=== PATIENT | female | born 1960 | race African-American/Black ===

== ENCOUNTER 2022-10-22 13:24 | Inpatient (IN) | payer OTHER, MEDICAID ==
[~2022-10-22] VITALS: Ht 157.5 cm; Wt 136.1 kg
[2022-10-22 13:41] VITALS: BP_SYST 147; PULSE 90; RESP 16; TEMP 97.3; O2SAT 98
--- NOTE | 2022-10-22 13:45 | NUR ---
RECEIVED PT FROM ARJUN BLAKE. PT BIBS FOR C/O RECTAL PAIN. PT STATED SHE WAS AT ANOTHER HOSPITAL AND HAD A PARITIAL HEMMORHOIDECTOMY. PT STATES PAIN IS 7/10. VSS. SIDERAILS UP X2.
--- NOTE | 2022-10-22 13:46 | NUR ---
DR. HERNANDEZ AT BEDSIDE TO ASSESS PT.
--- NOTE | 2022-10-22 14:02 | NUR ---
Admit bed requested Patient will be admitted to care of . Admitted to med surg unit. Diagnosis Intractible external hemmorhoid Inpatient (Yes or No) yes Observation (Yes or No) no Orientation concerns or request close to nursing station (Yes or No) no Covid Status na On vent or bipap no Isolation requirements no Needs a sitter no From Home (Yes or if No enter name of facility) home Requires Dialysis (Yes or No) no Med Rec Completed (Yes of No) pending.
[2022-10-22] MEDS ORDERED: NACL 0.9% 1,000 ML IV ONE (14:15)
[2022-10-22] MEDS ORDERED: HYDR25TA4 PO (14:19)
[2022-10-22] MEDS ORDERED: IBUP-1970 PO (14:19)
[2022-10-22] MEDS ORDERED: AMLO5TAB4 PO (14:19)
[2022-10-22] MEDS ORDERED: METO-442 PO (14:19)
[2022-10-22] MEDS ORDERED: LOSA100T4 PO (14:19)
--- NOTE | 2022-10-22 14:19 | NUR ---
Medication reconciliation completed with information provided by FAMILY. Any prior medication reconciliation on file was reviewed and corrected.
[2022-10-22 14:39] LABS: BASOPHILS # (AUTO) 0.1 K/uL (0.0-0.2); BASOPHILS % (AUTO) 1.4 % (0.0-2.0); EOSINOPHILS # (AUTO) 0.5 K/uL (0.0-0.4); EOSINOPHILS % (AUTO) 5.3 % (0.0-4.0); HEMATOCRIT 39.5 % (36-48); HEMOGLOBIN 13.2 g/dL (12.0-16.0); LYMPHOCYTES # (AUTO) 2.8 K/uL (1.0-5.5); LYMPHOCYTES % (AUTO) 32.1 % (20.5-51.5); MEAN CORPUSCULAR HEMOGLOBIN 28 pg (27-31); MEAN CORPUSCULAR HGB CONC 33 % (32-36); MEAN CORPUSCULAR VOLUME 85 fL (79.0-98.0); MONOCYTES # (AUTO) 0.7 K/uL (0.0-1.0); MONOCYTES % (AUTO) 7.8 % (1.7-9.3); NEUTROPHILS # (AUTO) 4.7 K/uL (1.8-7.7); NEUTROPHILS % (AUTO) 53.4 % (40.0-70.0); PLATELET COUNT (AUTO) 464 K/uL (130-430); RED BLOOD CELL COUNT(AUTO) 4.66 MIL/uL (4.2-6.2); RED CELL DISTRIBUTION WIDTH 15.2 % (9.0-15.0); WHITE BLOOD COUNT (AUTO) 8.7 K/uL (4.8-10.8)
[2022-10-22] MEDS ORDERED: MORPHINE 2 MG/ML INJ. SYRINGE IVP PRN ×2 (14:45)
[2022-10-22] MEDS ORDERED: ACETAMINOPHEN 325 MG TABLET PO PRN ×2 (14:45→15:15)
[2022-10-22] MEDS ORDERED: MUPIROCIN 2% TOPICAL OINTMENT 22 GM NS PRN (14:45)
[2022-10-22] MEDS ORDERED: ONDANSETRON HCL 4 MG/2 ML VIAL IVP PRN (14:45)
[2022-10-22] MEDS ORDERED: POTASSIUM CHLORIDE 20 MEQ TAB.PRT.SR PO PRN (14:45)
[2022-10-22] MEDS ORDERED: LORazepam 2 MG/ML VIAL IVP PRN (14:45)
[2022-10-22] MEDS ORDERED: ZOLPIDEM TARTRATE 5 MG TABLET PO PRN (14:45)
[2022-10-22] MEDS ORDERED: MAGNESIUM SULFATE 50 ML IV PRN (14:45)
[2022-10-22] MEDS ORDERED: NALOXONE HCL 0.4 MG/ML AMP (NARCAN) IVP PRN ×2 (14:45)
[2022-10-22] MEDS ORDERED: DOCUSATE SODIUM 100 MG CAPSULE PO PRN (14:45)
--- NOTE | 2022-10-22 14:46 | NUR ---
NS IV INITATED AT 100MG/HOUR.
[2022-10-22 14:52] LABS: CALCIUM 8.7 mg/dL (8.4-11.0); CREATININE 0.86 mg/dL (0.55-1.30)
[2022-10-22 14:57] LABS: ALBUMIN 3.1 g/dL (3.4-4.8); INR 1.1 (0.8-1.2); PROTHROMBIN TIME 10.9 SECS (9.5-12.5); TOTAL BILIRUBIN 0.6 mg/dL (0.0-1.0)
[2022-10-22] MEDS: NACL 0.9% 1,000 ML IV SCH (15:38)
--- NOTE | 2022-10-22 15:57 | NUR ---
Patient will be admitted to care of DR. CEJA/ARJUN BATES. Admitted to MEDICAL SURGICAL unit. Will go to room 125A. Belongings list completed. Complete and up to date summary report printed. SBAR report to be given at bedside with opportunity for questions.
--- NOTE | 2022-10-22 16:07 | NUR ---
CONSULTATION PAGED/CALLED Reason for Consultation: [] INTRACTABLE EXTERNAL HEMORRHOID Person Who was Notified: [] DICK Consulting Physician: [] DR Isis BILLS Lip And Gate Builder Specialty: [] GEN SURGEON Ordering Physician: [] DR CEJA
[2022-10-22 16:13] VITALS: BP_SYST 137; PULSE 59; RESP 18; TEMP 97.2; O2SAT 99
[2022-10-22 16:16] VITALS: BP_SYST 137; PULSE 60; RESP 18; TEMP 97.2
--- NOTE | 2022-10-22 19:15 | NUR ---
OPENING NOTE REPORT RECEIVED FROM DAYSHIFT NURSE. PATIENT RECEIVED LYING IN BED, AWAKE, NO S/S OF ACUTE DISTRESS. BREATHING EVEN AND UNLABORED. HOB RAISED. IVF INFUSING WELL. IV SITE PATENT, NO SIGNS OF INFILTRATION OR INFECTION NOTED. CALL LIGHT WITH PATIENT, EDUCATED ON PROPER USE, PATIENT VERBALIZED UNDERSTANDING AND DEMONSTRATED PROPER USE. BED IS LOCKED AND AT LOWEST POSITION. WILL CONTINUE TO MONITOR.
[2022-10-22 20:00] VITALS: BP_SYST 124; PULSE 62; RESP 18; TEMP 97.2; O2SAT 99
[2022-10-22] MEDS: METOPROLOL TARTRATE 50 MG TABLET PO SCH (20:49)
--- NOTE | 2022-10-22 23:00 | NUR ---
ROUNDS PATIENT IS ASLEEP. NO SIGNS OF DISCOMFORT NOTED. CHEST RISE AND FALL EVEN BILATERALLY. CALL LIGHT WITH PATIENT. WILL MONITOR.
[2022-10-23 00:27] VITALS: BP_SYST 134; PULSE 70; RESP 18; TEMP 96.4; O2SAT 94
--- NOTE | 2022-10-23 03:00 | NUR ---
ROUNDS PATIENT IN BED, RESTING. NO CHANGE IN CONDITION. ALL NEEDS MET. WILL MONITOR.
[2022-10-23] MEDS: NACL 0.9% 1,000 ML IV SCH ×3 (04:49→20:25)
[2022-10-23 04:58] LABS: BASOPHILS # (AUTO) 0.1 K/uL (0.0-0.2); BASOPHILS % (AUTO) 0.7 % (0.0-2.0); EOSINOPHILS # (AUTO) 0.4 K/uL (0.0-0.4); EOSINOPHILS % (AUTO) 5.5 % (0.0-4.0); HEMATOCRIT 37.5 % (36-48); HEMOGLOBIN 12.2 g/dL (12.0-16.0); LYMPHOCYTES # (AUTO) 2.5 K/uL (1.0-5.5); MEAN CORPUSCULAR HEMOGLOBIN 28 pg (27-31); MEAN CORPUSCULAR HGB CONC 33 % (32-36); MEAN CORPUSCULAR VOLUME 86 fL (79.0-98.0); MONOCYTES # (AUTO) 0.7 K/uL (0.0-1.0); MONOCYTES % (AUTO) 8.9 % (1.7-9.3); NEUTROPHILS # (AUTO) 4.3 K/uL (1.8-7.7); NEUTROPHILS % (AUTO) 53.9 % (40.0-70.0); PLATELET COUNT (AUTO) 425 K/uL (130-430); RED BLOOD CELL COUNT(AUTO) 4.35 MIL/uL (4.2-6.2); RED CELL DISTRIBUTION WIDTH 15.2 % (9.0-15.0); WHITE BLOOD COUNT (AUTO) 8.1 K/uL (4.8-10.8)
[2022-10-23 05:13] LABS: CALCIUM 8.4 mg/dL (8.4-11.0); CREATININE 0.79 mg/dL (0.55-1.30)
--- NOTE | 2022-10-23 06:25 | NUR ---
CLOSING NOTE PATIENT IN BED, RESTING AT THIS TIME. NO S/S OF ACUTE DISTRESS. BREATHING EVEN AND UNLABORED. IVF INFUSING WELL. IV SITE PATENT, NO SIGNS OF INFILTRATION OR INFECTION NOTED. ALL NEEDS MET. FALL, SAFETY PRECAUTIONS MAINTAINED THROUGHOUT SHIFT. WILL CONTINUE TO MONITOR UNTIL PATIENT CARE IS ENDORSED TO ONCOMING DAYSHIFT NURSE.
[2022-10-23 08:00] VITALS: BP_SYST 125; PULSE 67; RESP 20; TEMP 98.3; O2SAT 97
[2022-10-23] MEDS ORDERED: NON-FORMULARY MEDICATION (Losartan Potassium (Cozaar) 100 MG) PO SCH (09:00)
[2022-10-23] MEDS: HYDROCHLOROTHIAZIDE 25 MG TABLET (HCTZ) PO SCH (09:00)
[2022-10-23] MEDS: LOSARTAN POTASSIUM 50 MG TABLET (COZAAR) PO SCH (09:00)
[2022-10-23] MEDS: DOCUSATE SODIUM 250 MG CAPSULE PO SCH ×2 (09:00→20:32)
[2022-10-23] MEDS: METOPROLOL TARTRATE 50 MG TABLET PO SCH ×2 (09:00→20:31)
[2022-10-23 10:42] LABS: BILIRUBIN,URINE 1+ (NEGATIVE); BLOOD, URINE NEGATIVE (NEGATIVE); CLARITY/URINE CLEAR (CLEAR); COLOR,URINE YELLOW (YELLOW); GLUCOSE,URINE NEGATIVE (NEGATIVE); KETONES,URINE 2+ (NEGATIVE); LEUKOCYTE ESTERASE ,URINE NEGATIVE (NEGATIVE); NITRITE, URINE NEGATIVE (NEGATIVE); PROTEIN URINE NEGATIVE (NEGATIVE); UROBILINOGEN,URINE 0.2 (0.2-1.0)
[2022-10-23 10:53] LABS: RBC,URINE 0-3 /HPF (0-3); WBC,URINE 0-3 /HPF (0-3)
[2022-10-23 10:54] LABS: BACTERIA,URINE MODERATE /HPF (None Seen)
--- NOTE | 2022-10-23 15:07 | NUR ---
Dietitian Recommendations * Consider advance to Clear Liquid diet after Sx if/when medically appropriate -- ONS Ensure Clear TID comes standard w/ current diet -- ONS yields additional 720 kcal/day, 24 gm protein/day) LP, MS, RD Please refer to Nutrition Assessment for details. Addendum: 10/23/22 at [address] Amended: Links added.
[2022-10-23] MEDS ORDERED: LIDOCAINE JELLY 5 ML TUBE MM PRN (17:15)
--- NOTE | 2022-10-23 19:15 | NUR ---
OPENING NOTE REPORT RECEIVED FROM [facility] NURSE. PATIENT RECEIVED LYING IN BED. AWAKE. PATIENT STILL UPSET AT HOW THE DAY HAS GONE, SURGERY DID NOT HAPPEN, SHE HASN'T EATEN IN 2 DAYS, ANXIOUS TO FIND OUT WHEN THE SURGERY WILL HAPPEN. OTHERWISE NO S/S OF ACUTE DISTRESS. BREATHING EVEN AND UNLABORED. NO IV SITE AT THIS TIME. PATIENT STILL REFUSING TO HAVE ONE INSERTED. PATIENT STATED "JUST FIND OUT IF I CAN EAT TONIGHT, I HAVEN'T EATEN IN 2 DAYS". CALL LIGHT WITH PATIENT, BED IS LOCKED AND AT LOWEST POSITION. WILL CONTINUE TO MONITOR.
[2022-10-23 20:00] VITALS: BP_SYST 146; PULSE 102; PULSE 110; RESP 18; TEMP 97.3; O2SAT 92; O2SAT 96
[2022-10-23] MEDS: IBUPROFEN 600 MG TABLET PO PRN (20:31)
--- NOTE | 2022-10-23 21:25 | NUR ---
PATIENT UPSET ALL DAY EXPECTING TO GO TO SURGERY. DELAY IN SURGICAL PROCEDURE DUE TO CARDIAC DELORIS AND NEUROLOGICAL DELORIS. PATIENT SO DISAPPOINTED TO POINT OF ANGRY REFUSING CARE WOULD NOT ALLOW vvs TO BE TAKEN NURSING INTERVENTIONS. WHEN AT GREAT LENGTH CALLING SURGERY PATIENT'S DR'S TO GET PATIENT TO UNDERSTAND THE IMPORTANCE OF CONSULT DUE TO PAST HISTORY. UNABLE TO PLEASE PATIENT IN ANY WAY.
--- NOTE | 2022-10-23 21:25 | NUR ---
CONSULTATION PAGED/CALLED Reason for Consultation: cardia clearance for sx Person Who was Notified: dr nishant nazario via text Consulting Physician: micha Therapeutic Recreation Director Specialty: Ordering Physician: imke
--- NOTE | 2022-10-23 21:25 | NUR ---
CONSULTATION PAGED/CALLED Reason for Consultation: myasthenia gravis Person Who was Notified: dr garner via text Consulting Physician: dr garner Head Inspector Specialty: Ordering Physician: mike
--- NOTE | 2022-10-23 23:00 | NUR ---
ROUNDS PATIENT IN BED, NO SIGNS OF DISCOMFORT. CHEST RISE AND FALL EVEN BILATERALLY. ALL NEEDS MET. CALL LIGHT WITH PATIENT. WILL MONITOR.
[2022-10-23 23:41] VITALS: BP_SYST 121; PULSE 77; RESP 18; TEMP 97; O2SAT 95
[2022-10-24 00:10] VITALS: BP_SYST 121; PULSE 77; RESP 16; TEMP 97; O2SAT 95
--- NOTE | 2022-10-24 03:00 | NUR ---
ROUNDS NO CHANGE IN CONDITION. ALL NEEDS MET. WILL MONITOR.
[2022-10-24] MEDS: NACL 0.9% 1,000 ML IV SCH (05:30)
[2022-10-24 05:33] LABS: BASOPHILS # (AUTO) 0.2 K/uL (0.0-0.2); BASOPHILS % (AUTO) 2.4 % (0.0-2.0); EOSINOPHILS # (AUTO) 0.5 K/uL (0.0-0.4); EOSINOPHILS % (AUTO) 5.2 % (0.0-4.0); HEMATOCRIT 36.7 % (36-48); HEMOGLOBIN 11.8 g/dL (12.0-16.0); LYMPHOCYTES % (AUTO) 33.6 % (20.5-51.5); MEAN CORPUSCULAR HEMOGLOBIN 28 pg (27-31); MEAN CORPUSCULAR HGB CONC 32 % (32-36); MEAN CORPUSCULAR VOLUME 86 fL (79.0-98.0); MONOCYTES # (AUTO) 0.8 K/uL (0.0-1.0); MONOCYTES % (AUTO) 8.4 % (1.7-9.3); NEUTROPHILS # (AUTO) 4.5 K/uL (1.8-7.7); NEUTROPHILS % (AUTO) 50.4 % (40.0-70.0); PLATELET COUNT (AUTO) 478 K/uL (130-430); RED BLOOD CELL COUNT(AUTO) 4.26 MIL/uL (4.2-6.2); RED CELL DISTRIBUTION WIDTH 15.2 % (9.0-15.0)
[2022-10-24 05:50] LABS: CALCIUM 8.4 mg/dL (8.4-11.0); CREATININE 0.81 mg/dL (0.55-1.30)
--- NOTE | 2022-10-24 06:23 | NUR ---
NEW IV/CLOSING NOTE PATIENT ALLOWED RN TO DO AN IV, 2O GAUGE LEFT HAND INSERTED, PATIENT TOLERATED WELL. NO S/S OF ACUTE DISTRESS AT THIS TIME. BREATHING EVEN AND UNLABORED. ALL NEEDS MET THROUGHOUT SHIFT. FALL, SAFETY PRECAUTIONS MAINTAINED THROUGHOUT SHIFT. WILL CONTINUE TO MONITOR UNTIL PATIENT CARE IS ENDORSED TO ONCOMING DAYSHIFT NURSE.
[2022-10-24 07:00] VITALS: BP_SYST 134; PULSE 71; RESP 18; TEMP 96.7; O2SAT 94
[2022-10-24] MEDS: DOCUSATE SODIUM 250 MG CAPSULE PO SCH ×2 (08:57→21:23)
[2022-10-24] MEDS: HYDROCHLOROTHIAZIDE 25 MG TABLET (HCTZ) PO SCH (08:58)
[2022-10-24] MEDS: LOSARTAN POTASSIUM 50 MG TABLET (COZAAR) PO SCH (09:00)
[2022-10-24] MEDS: METOPROLOL TARTRATE 50 MG TABLET PO SCH (09:05)
[2022-10-24] MEDS ORDERED: MIDAZOLAM HCL/PF 2 MG/2 ML SYRINGE ONE (10:00)
[2022-10-24] MEDS ORDERED: BUPIVACAINE /PF 0.25% 30 ML VIAL INJ ONE (10:00)
[2022-10-24] MEDS ORDERED: CIPROFLOXACIN LACTATE/D5W 400 MG/200 ML PIGGYBACK IV ONE (10:00)
[2022-10-24] MEDS ORDERED: BACITRACIN 1 GM OINT TP ONE (10:00)
[2022-10-24] MEDS ORDERED: NS IRRIG SOLN 1000 ML IR ONE (10:00)
[2022-10-24] MEDS ORDERED: LR 1,000 ML IV.SOLN IV ONE (10:00)
--- NOTE | 2022-10-24 10:11 | NUR ---
PATIENT READY FOR SURGERY JUST TAKEN TO OR. VSS AFEBRILE NO FAMILY HERE AT THIS TIME.
[2022-10-24] MEDS ORDERED: BUPIVACAINE LIPOSOME/PF 266 MG/20 ML VIAL INFIL ONE (10:17)
[2022-10-24] MEDS ORDERED: fentaNYL CITRATE/PF 100 MCG/2 ML AMP IVP PRN ×2 (10:45)
[2022-10-24] MEDS ORDERED: METOCLOPRAMIDE HCL 10 MG/2 ML VIAL IVP PRN (10:45)
[2022-10-24] MEDS ORDERED: ONDANSETRON HCL 4 MG/2 ML VIAL IVP PRN (10:45)
[2022-10-24 12:39] VITALS: BP_SYST 129; PULSE 62; RESP 18; TEMP 96.3; O2SAT 98
--- NOTE | 2022-10-24 16:25 | NUR ---
Assumed care, pt in bed on her phone. No acute distress. Pain is control. Enc to call for help as needed. Pt verbalize understanding.
[2022-10-24 16:30] VITALS: BP_SYST 135; PULSE 72; RESP 17; TEMP 97.2; O2SAT 97
--- NOTE | 2022-10-24 16:36 | NUR ---
Notes- patient was seen by Dr. torres this morning before surgery. informed patient that he was cleared to go home by surgeon. Patient prefer to stay 1 more night.
--- NOTE | 2022-10-24 18:28 | NUR ---
closing notes Assisted to the bathroom and voided. Pain is control. Dinner provided. will endorse
[2022-10-24 20:00] VITALS: BP_SYST 156; PULSE 89; RESP 20; TEMP 98.5; O2SAT 95
--- NOTE | 2022-10-24 20:00 | NUR ---
OPENING NOTE Pt awake lying in bed. Pt is visibly upset, stating she is in pain and has not received pain medication yet. Informed pt prescribed pain medications and asked which one she prefers, pt ignored RN and did not answer any questions she was asked. ARJUN Ferrera spoke with the patient to ask which pain mediation she wants. Pt verbalized she wanted Motrin and lidocaine gel.
[2022-10-24] MEDS: IBUPROFEN 600 MG TABLET PO PRN (20:14)
[2022-10-24] MEDS ORDERED: POLY119P3 PO (21:00)
--- NOTE | 2022-10-24 21:00 | NUR ---
SPOKE W/ DR SWANSON Informed pt changed her mind about wanting to stay one more night. Stated he will put in discharge order and meds
[2022-10-24] MEDS ORDERED: DERMOPLAST SPRAY TP ONE (21:24)
[2022-10-24 21:25] VITALS: BP_SYST 156; PULSE 89; RESP 20; TEMP 98.5; O2SAT 95
--- NOTE | 2022-10-24 23:10 | NUR ---
DISCHARGED Pt discharged home. Taken out via wheelchair. VSS. IV and ID wrist band removed. Discharge instructions provided. All belongings sent with patient.l
== END 2022-10-24 23:10 | disposition home or self-care (01) | DRG 348 ==
LOC: SED 13:24 → SMU 14:04
PROVIDERS: ADMIT General Practice; ATTEND General Practice
PROC: 06BY0ZC Excision of Hemorrhoidal Plexus, Open Approach (ICD-10-PCS; principal; 2022-10-24 10:15)
DX: K64.5 Perianal venous thrombosis (principal); Z68.43 Body mass index [BMI] 50.0-59.9, adult; K64.4 Residual hemorrhoidal skin tags; E66.01 Morbid (severe) obesity due to excess calories; I10 Essential (primary) hypertension; K64.8 Other hemorrhoids; Z88.0 Allergy status to penicillin; Z79.899 Other long term (current) drug therapy; Z90.710 Acquired absence of both cervix and uterus; Z90.49 Acquired absence of other specified parts of digestive tract; Z79.1 Long term (current) use of non-steroidal anti-inflammatories (NSAID)
CPT/HCPCS: 36415; 71045; 80048; 80053; 81000; 83037; 83735; 85025; 85610-TC; 85730-TC; 86886; 86900; 86901; 87081; 88304; 93005; 99285; C9290; J0744; J3465; J3490; J7030; J7120